=== PATIENT | male | born 1960 | race Caucasian/White ===

== ENCOUNTER 2024-07-06 06:50 | Outpatient (CLI) | payer BC, SELFPAY ==
--- NOTE | ~2024-07-06 | MR_ITS ---
MRI of the lumbar spine Clinical History: Radiculopathy Technique: Axial T2-weighted images, and sagittal T1-weighted, T2-weighted, and T2 fat-sat images wer e acquired. Findings: No acute fracture seen. There are grade 1 retrolistheses at L2-L3, L3-L4, L4-L5, and L5-S1, greatest at L5-S1 measuring 4 mm. No suspicious bone marrow signal abnormality seen. At L1-L2, there is minimal disc bulge with moderate to advanced facet arthropathy. No central canal s tenosis or neural foraminal narrowing. At L2-L3, there is moderate degenerative disc narrowing. There is diffuse disc bulge with moderate fa cet arthropathy. No central canal stenosis. There is mild left neural foraminal narrowing, and modera te right neural foraminal narrowing. At L3-L4, there is moderate to advanced degenerative disc narrowing. There is diffuse disc bulge with moderate to advanced facet arthropathy. No john central canal stenosis. There is severe left neural foraminal narrowing, and moderate right neural foraminal narrowing. At L4-L5, there is moderate to advanced degenerative disc narrowing. Disc bulge and severe facet arth ropathy result in moderate to advanced spinal canal stenosis/thecal sac compression. There is severe bilateral neural foraminal narrowing. At L5-S1, there is advanced degenerative disc narrowing. There is diffuse disc bulge with superimpose d central disc protrusion. There is mild to moderate facet arthropathy. No central canal stenosis. Th ere is mild bilateral neural foraminal narrowing. Paravertebral soft tissues are unremarkable. Impression: Moderate to advanced degenerative spondylosis, as above, with multilevel neural foraminal narrowing. There is moderate to advanced spinal canal stenosis at L4-L5. 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 Reviewed, dictated and finalized at [facility]. Impression: Moderate to advanced degenerative spondylosis, as above, with multilevel neural foraminal narrowing. There is moderate to advanced spinal canal stenosis at L4 -L5. 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
== END 2024-07-06 06:51 | disposition home or self-care (01) ==
LOC: MICIMG 06:51
PROVIDERS: PCP Physician Assistant; Visit Provider Physician Assistant
DX: M47.896 Other spondylosis, lumbar region (principal); M43.16 Spondylolisthesis, lumbar region
CPT/HCPCS: 72148